=== PATIENT | male | born 1985 | race Caucasian/White ===

== ENCOUNTER 2019-07-24 22:16 | Emergency (ER) | payer SELFPAY ==
--- NOTE | ~2019-07-24 | XR_ITS ---
EXAMINATION: XR foot RT min 3V EXAM DATE: 07/24/2019 23:01 INDICATION: Sore plantar surface of right foot, swelling and redness. TECHNIQUE: Right foot dorsoplantar, lateral and oblique projections obtained and reviewed. There is no prior study for comparison. FINDINGS: Right metatarsal bones unremarkable. There are no bony erosions identified. There are no acute fractures or dislocations identified. There is no subcutaneous gas. The soft tissue is unrema rkable. There are no radiopaque foreign bodies. IMPRESSION: 1. Unremarkable XR foot RT min 3V exam. Reviewed, dictated and finalized at location A.
[2019-07-24 22:28] VITALS: BP 125/98; PULSE 85; RESP 14; TEMP 36.7; O2SAT 100
--- NOTE | 2019-07-24 22:30 | ED.GENADULT ---
HPI - General Adult General Chief complaint: Skin/Abscess/Foreign Body Stated complaint: abscess on right foot Time Seen by Provider: 07/24/19 22:20 Source: patient Mode of arrival: ambulatory Limitations: no limitations History of Present Illness HPI narrative: Patient is a 34-year-old male who presents for evaluation of right foot pain. Patient reports that he has had swelling on the underside of his foot over the past 3 days, worsening, mild, aching and pain, worse with ambulation. No redness, no drainage. No fever or chills. Patient states he works on his feet often he was doing some repairs on a truck staying on the forefoot about a week ago, since then has had pain and swelling. No broken skin or bleeding issues. Patient has a history of athlete's foot, no recent sores or wounds. Related Data Allergies Allergy/AdvReac Type Severity Reaction Status Date / Time No Known Allergies Allergy Verified 07/24/19 23:00 Review of Systems Review of Systems: Narrative: CONSTITUTIONAL: Denies fever, chills, or sweats. CARDIOVASCULAR: Denies chest pain RESPIRATORY: Denies cough or dyspnea. GASTROINTESTINAL: Denies abdominal pain\ SKIN: Denies rash or itching. MUSCULOSKELETAL: Reports right foot pain NEUROLOGIC: Denies weakness. [facility], [facility] Past Medical History Medical History (Updated 07/24/19 @ 23:22 by Maria Del Carmen Stanton MD) No significant past medical history Surgical History Surgical History (Updated 07/24/19 @ 22:32 by Maria Del Carmen Stanton MD) No significant past surgical history Social History Social History (Updated 07/24/19 @ 22:32 by Maria Del Carmen Stanton MD) Smoking status: Current every day smoker Tobacco type: cigarettes Alcohol intake: never Substance use: never Gender identity (if verbalized by the patient): Male Exam Narrative: Exam Narrative: GENERAL: Awake, alert, conversant HEAD: Normocephalic, atraumatic. EYES: PERRLA and EOMI. ENT: Nares clear, no rhinorrhea or epistaxis. Mucous membranes moist. NECK: Supple. CHEST: No respiratory distress, breathing even and non labored HEART: Regular rate, sinus rhythm ABDOMEN:Non distended, non tender EXTREMITIES: Normal range of motion. No edema. Mild edema and fluctuance, pad of right foot, no erythema, no drainage, no open wound, + tender to palpation SKIN: Warm, dry, no rash. NEURO:No focal deficits. Alert and oriented x3 Course Vital Signs Vital signs: Vital Signs Temperature 36.7 C 07/24/19 22:28 Pulse Rate 85 07/24/19 22:28 Respiratory Rate 14 07/24/19 22:28 Blood Pressure 125/98 H 07/24/19 22:28 Pulse Oximetry 100 07/24/19 22:28 Temperature 36.7 C 07/24/19 22:28 Pulse Rate 85 07/24/19 22:28 Respiratory Rate 14 07/24/19 22:28 Blood Pressure 125/98 H 07/24/19 22:28 Pulse Oximetry 100 07/24/19 22:28 Procedures Abscess I/D foot: Date of Incision: 07/24/19 Time of Incision: 23:15 Side (if applicable): right Local Anesthetic: lidocaine 1% Amount of anesthesia used (mL): 5 Technique: incised with #11 blade Amount of fluid expressed (mL): 5 Irrigation: Yes Packing used?: none I&D Results: Pus and Blood Medical Decision Making MDM Narrative Medical decision making narrative: Patient presented for evaluation of right foot pain. At the time of initial assessment, ABCs are intact. Vital signs are stable. Patient is neurovascularly intact, he does have some swelling and fluctuance on the underside of the right foot pad which is likely concerning for abscess versus cyst. X-ray shows no osseous abnormality, no subcutaneous air. There is no overlying erythema or signs of cellulitis. The area was prepped, cleansed, drained there was purulent discharge. There is evidence of abscess given purulent drainage. Given foot wound, this is quite an unusual spot for an abscess. We will go ahead and start patient on ciprofloxacin to cover for possible pseudomon
[2019-07-24 23:35] VITALS: BP 143/95; PULSE 82; RESP 14; TEMP 36.6; O2SAT 96
== END 2019-07-24 23:37 | disposition home or self-care (01) ==
PROVIDERS: Emergency Provider Emergency Medicine
DX: L02.611 Cutaneous abscess of right foot (principal); F17.210 Nicotine dependence, cigarettes, uncomplicated
CPT/HCPCS: 10060; 73630; 99283

== ENCOUNTER 2019-08-19 19:04 | Emergency (ER) | payer SELFPAY ==
--- NOTE | ~2019-08-19 | CT_ITS ---
EXAMINATION: CT pelvis w con EXAM DATE: 08/19/2019 23:32 INDICATION: Perirectal abscess. TECHNIQUE: Spiral CT pelvis was performed following intravenous injection of 100 mL Omnipaque 350. A xial, coronal and sagittal images were reviewed. The dose-length product (DLP) for this examination was 442.11 mGy-cm. The exposure was tailored according to patient size (auto mA exposure control), a nd iterative reconstruction (ASIR) was used as additional dose reduction technique. There is no prio r study for comparison. FINDINGS: On the inner aspect of the right buttocks subcutaneous soft tissues there is a pocket of fl uid measuring about 1.8 x 0.9 cm consistent with tiny abscess. There is induration of the overlying s kin. Pelvic floor and perineum are unremarkable. Prostate normal in size. Bladder unremarkable. There is m ild sigmoid colonic diverticulosis. There is no adjacent inflammatory change to suggest diverticulit is. Normal appendix and unremarkable imaged portions of small bowel. IMPRESSION: Small abscess inner aspect right buttocks. Reviewed, dictated and finalized at location G.
[2019-08-19 19:09] VITALS: BP 137/83; PULSE 108; RESP 16; TEMP 36.9; O2SAT 99
[2019-08-19 21:30] VITALS: BP 121/76; PULSE 85; RESP 18; TEMP 36.9; O2SAT 99
[2019-08-19 22:54] LABS: Basophils Absolute Auto 0.1 K/mm3 (0.0-0.1); Basophils Percent Auto 0.4 % (0.2-1.2); Eosinophils Absolute Auto 0.2 K/mm3 (0-0.3); Eosinophils Percent Auto 1.3 % (0-4.4); Hematocrit 41.9 % (42.0-52.0); Hemoglobin 14.1 g/dL (14.0-18.0); Immature Granulocyte Absolute 0.04 K/mm3 (0.00-0.031); Immature Granulocyte Percent A 0.3 % (0-0.5); Lymphocytes Absolute Auto 2.97 K/mm3 (0.9-3.2); Lymphocytes Percent Auto 20.8 % (18.3-44.2); Mean Corpuscular HGB Conc 33.7 g/dl (32-36); Mean Corpuscular Hemoglobin 30.8 pg (26-34); Mean Corpuscular Volume 91.5 fl (80-100); Mean Platelet Volume 9.4 fl (7.4-10.4); Monocytes Absolute Auto 1.1 K/mm3 (0.1-0.6); Monocytes Percent Auto 7.4 % (2.6-8.5); Neutrophils Percent Auto 69.8 % (45.5-73.1); Platelet Count Result 275 k/mm3 (150-375); Red Blood Count 4.58 M/mm3 (4.6-6.20); Red Cell Distribution Width 12.4 % (11.5-14.5); White Blood Count 14.3 K/mm3 (4.5-10.0)
--- NOTE | 2019-08-19 23:07 | ED.SKABFB ---
HPI - Skin/Abscess/Foreign Bdy General Chief complaint: Skin/Abscess/Foreign Body <Raven Marie PA-C - Last Filed: 08/20/19 00:21> Stated complaint: cyst on buttock <Raven Marie PA-C - Last Filed: 08/20/19 00:21> Time Seen by Provider: 08/19/19 21:44 <Raven Marie PA-C - Last Filed: 08/20/19 00:21> Source: patient <Raven Marie PA-C - Last Filed: 08/20/19 00:21> Mode of arrival: ambulatory <Raven Marie PA-C - Last Filed: 08/20/19 00:21> Limitations: no limitations <Raven Marie PA-C - Last Filed: 08/20/19 00:21> History of Present Illness HPI narrative: This is a 34 year old male that presents to the ER for a cyst on his buttock for 2 years. Reports it has always been very small. Reports over the last week it has become much larger, red and painful. Reports he was recently seen here for an abscess on his foot which has healed. Denies fever, drainage, or vomiting. <Raven Marie PA-C - Last Filed: 08/20/19 00:21> Related Data Allergies/Adverse reactions: Allergies Allergy/AdvReac Type Severity Reaction Status Date / Time No Known Allergies Allergy Verified 08/19/19 21:55 <Raven Marie PA-C - Last Filed: 08/20/19 00:21> Review of Systems Review of Systems: Narrative: CONSTITUTIONAL: Denies fever GASTROINTESTINAL: Denies vomiting SKIN: Reports abscess <Raven Marie PA-C - Last Filed: 08/20/19 00:21> All systems reviewed & are unremarkable except as noted in HPI and below <Raven Marie PA-C - Last Filed: 08/20/19 00:21> [facility] Past Medical History Medical History: Medical History (Updated 08/20/19 @ 00:20 by Raven Marie PA-C) No significant past medical history <Raven Marie PA-C - Last Filed: 08/20/19 00:21> Surgical History Surgical History: Surgical History (Updated 07/24/19 @ 22:32 by Maria Del Carmen Stanton MD) No significant past surgical history <Raven Marie PA-C - Last Filed: 08/20/19 00:21> Social History Social History: Social History (Updated 07/24/19 @ 22:32 by Maria Del Carmen Stanton MD) Smoking status: Current every day smoker Tobacco type: cigarettes Alcohol intake: never Substance use: never Gender identity (if verbalized by the patient): Male <RUTH Springer Last Filed: 08/20/19 00:21> Exam Narrative: Exam Narrative: GENERAL: Well-appearing, well-nourished, and in no acute distress. HEAD: Normocephalic, atraumatic. EYES: EOMI. EXTREMITIES: Normal range of motion. No edema. SKIN: Warm, dry, no rash. NEURO: No focal deficits. Alert and oriented x3. PSYCH: Normal mood and affect RECTAL: 2cm perirectal abscess on the right with mild surrounding cellulitis <Raven Marie PA-C - Last Filed: 08/20/19 00:21> Course Vital Signs Vital signs: Vital Signs Temperature 98.4 F 08/19/19 19:09 Pulse Rate 108 H 08/19/19 19:09 Respiratory Rate 16 08/19/19 19:09 Blood Pressure 137/83 08/19/19 19:09 Pulse Oximetry 99 08/19/19 19:09 Temperature 98 F 08/20/19 00:28 Pulse Rate 84 08/20/19 00:28 Respiratory Rate 16 08/20/19 00:28 Blood Pressure 125/82 08/20/19 00:28 Pulse Oximetry 97 08/20/19 00:28 <Raven Marie PA-C - Last Filed: 08/20/19 00:21> Vital Signs Temperature 98.4 F 08/19/19 19:09 Pulse Rate 108 H 08/19/19 19:09 Respiratory Rate 16 08/19/19 19:09 Blood Pressure 137/83 08/19/19 19:09 Pulse Oximetry 99 08/19/19 19:09 Temperature 98 F 08/20/19 00:28 Pulse Rate 84 08/20/19 00:28 Respiratory Rate 16 08/20/19 00:28 Blood Pressure 125/82 08/20/19 00:28 Pulse Oximetry 97 08/20/19 00:28 <Hailey Buenrostro MD - Last Filed: 08/20/19 02:42> Procedures Abscess I/D carlos-rectal: Date of Incision: 08/20/19 <Raven Marie PA-C - Last Filed: 08/20/19 00:21> Time of Incision: 00:17 <Raven Marie PA-C - Last Filed: 08/20/19 00:21> Side (if ap
[2019-08-19 23:11] LABS: Blood Urea Nitrogen 9 mg/dL (9-20); CRP 1.9 mg/dL (<1.0); Carbon Dioxide 27 mmol/L (22-30); Chloride 104 mmol/L (98-107); Estimated CRCL calculation 103 ml/min; Estimated Glomerular Filt Rate > 60; Glucose 101 mg/dL (75-110); Potassium 4.2 mmol/L (3.4-5.0); Sodium 137 mmol/L (137-145)
[2019-08-19 23:41] LABS: Erythrocyte Sedimentation Rate 27 mm/hr (0-20)
[2019-08-20] MEDS: AMOXICILLIN/CLAVULANATE K 875-125 MG TAB 1 TABLET PO (00:26)
[2019-08-20 00:28] VITALS: BP 125/82; PULSE 84; RESP 16; TEMP 36.6; O2SAT 97
== END 2019-08-20 00:37 | disposition home or self-care (01) ==
PROVIDERS: Physician Assistant; Emergency Provider General Practice; PCP Family Medicine
DX: L02.31 Cutaneous abscess of buttock (principal); F17.210 Nicotine dependence, cigarettes, uncomplicated
CPT/HCPCS: 10060; 36415; 72193; 80048; 85025; 85652; 86140; 87070; 87205; 99284; A9270; Q9967

== ENCOUNTER 2020-03-20 18:44 | Emergency (ER) | payer SELFPAY ==
--- NOTE | ~2020-03-20 | XR_ITS ---
EXAMINATION: XR knee RT min 4V DATE: 03/20/2020 19:13 INDICATION: Right knee pain TECHNIQUE: Four views of the right knee were obtained. COMPARISON: None. FINDINGS: Alignment is normal. No fracture or osteochondral lesion. Joint spaces are normal with no e rosions. No joint effusion/synovitis. Soft tissues are unremarkable. IMPRESSION: 1. No acute osseous abnormality. Reviewed, dictated and finalized at location A. [employer]
[2020-03-20 18:46] VITALS: BP 142/73; PULSE 89; RESP 16; TEMP 36.8; O2SAT 99
--- NOTE | 2020-03-20 19:11 | ED.LOWEXIN ---
HPI - Extremity Injury (Lower) General Chief Complaint: Extremity Injury, Lower Stated Complaint: right knee problem Time Seen by Provider: 03/20/20 19:11 Source: patient Mode of arrival: ambulatory Limitations: no limitations History of Present Illness HPI Narrative: Pt is a 35 yo male presenting with right knee pain. Pt reportedly twisted his right leg while working, he slipped off his truck. He twisted it again today while working, pulling weeds, slipping backwards. No head trauma or LOC. Pain is moderate in nature, aggravated with movement. He has had minimal improvement with Ibuprofen. He reports swelling, no bruising. He has been ambulatory. No back pain. No hip pain. No numbness. Related Data Allergies Allergy/AdvReac Type Severity Reaction Status Date / Time No Known Allergies Allergy Verified 03/20/20 19:04 Review of Systems Review of Systems: Narrative: CONSTITUTIONAL: Denies fever CARDIOVASCULAR: Denies chest pain RESPIRATORY: Denies cough or dyspnea. GASTROINTESTINAL: Denies abdominal pain SKIN: Denies rash MUSCULOSKELETAL: Denies back pain, reports right knee pain NEUROLOGIC: Denies headache PMFSH Past Medical History Medical History No significant past medical history Surgical History Surgical History No significant past surgical history Social History Social History Smoking status: Current every day smoker Tobacco type: cigarettes Alcohol intake: never Substance use: never Gender identity (if verbalized by the patient): Male Exam Narrative: Exam Narrative: GENERAL: Awake, alert, conversant HEAD: Normocephalic, atraumatic. EYES: PERRLA and EOMI. ENT: Nares clear, no rhinorrhea or epistaxis. Mucous membranes moist. NECK: Supple. CHEST: No respiratory distress, breathing even and non labored HEART: Regular rate, sinus rhythm ABDOMEN:Non distended, non tender EXTREMITIES: Normal range of motion. Mild right knee edema. Patella in place. Intact flexion and extension without limitation. Extremities warm and well perfused with sensation intact. No gross deformity. Pt ambulatory. SKIN: Warm, dry, no rash. NEURO:No focal deficits. Alert and oriented x3 Course Vital Signs Vital signs: Vital Signs Temperature 36.8 C 12/11/20 18:46 Pulse Rate 89 03/20/20 18:46 Respiratory Rate 16 03/20/20 18:46 Blood Pressure 142/73 H 03/20/20 18:46 Pulse Oximetry 99 03/20/20 18:46 Temperature 36.8 C 03/20/20 20:04 Pulse Rate 87 03/20/20 20:04 Respiratory Rate 18 03/20/20 20:04 Blood Pressure 135/90 03/20/20 20:04 Pulse Oximetry 97 03/20/20 20:04 MDM - Extremity Injury (Lower) Differential Diagnosis Differential diagnosis: Likely acute internal derangement of knee and other (knee strain, effusion) Medical Records Attestation: I reviewed the patient's medical records. Imaging Data Radiologist's impression: ITS Impressions Knee X-Ray 03/20/20 19:18 IMPRESSION: 1. No acute osseous abnormality. Discharge Plan Discharge Clinical Impression: Muscle strain of right knee Qualifiers: Encounter type: initial encounter Qualified Code(s): S86.911A - Strain of unspecified muscle(s) and tendon(s) at lower leg level, right leg, initial encounter Patient Disposition: Home, Self-Care Condition: Stable Instructions: Knee Pain (ED) Additional Instructions: Please contact your primary care physician or orthopedic surgeon for follow up from this visit. If you experience worsening pain, vomiting that does not stop, bleeding complications, chest pain, shortness of breath, inability to tolerate your medications please return for reassessment. Take any prescribed medications as directed Stay well-hydrated For fever and pain, you may take Tylenol 500 mg - 1000 mg every 8 hours, and Ibupro
[2020-03-20 20:04] VITALS: BP 135/90; PULSE 87; RESP 18; TEMP 36.8; O2SAT 97
== END 2020-03-20 20:05 | disposition home or self-care (01) ==
PROVIDERS: Emergency Provider Emergency Medicine
DX: S86.911A Strain of unspecified muscle(s) and tendon(s) at lower leg level, right leg, initial encounter (principal); X50.9XXA Other and unspecified overexertion or strenuous movements or postures, initial encounter; F17.210 Nicotine dependence, cigarettes, uncomplicated
CPT/HCPCS: 73564; 99283